=== PATIENT | female | born 1995 | race Caucasian/White ===

== ENCOUNTER 2016-04-16 20:44 | Emergency (ER) | payer OTHER ==
[~2016-04-16] VITALS: Ht 165.1 cm; Wt 45.0 kg
[~2016-04-16 20:44] MED LIST: HYDR-4079 PO; POLY335019 PO
[2016-04-16 20:46] VITALS: BP 125/85; PULSE 98; TEMP 36.6; O2SAT 100; Ht 165.1 cm; Wt 45.0 kg
[2016-04-16] MEDS ORDERED: PRED20TA2 PO (21:24)
[2016-04-16] MEDS ORDERED: CYCL10TA6 PO (21:24)
[2016-04-16] MEDS ORDERED: FLEXERIL HOME PACK 10 MG VIAL PO ONE (21:30)
[2016-04-16] MEDS ORDERED: ESCI10TA17 PO (21:58)
--- NOTE | 2016-04-17 15:50 | EMERGENCY ROOM VISIT NOTE ---
History First contact with patient: 20:50 Chief Complaint: BACK PAIN Stated Complaint: FEVER,BACK HURTS History of Present Illness The patient is a 20 year old female who presents to the Emergency Room with complaints of fever and back pain for the past one day. The patient states that she started her menses today, and will often have pain with her cycle. The patient states that she has not taken anything [id number] for her discomfort which she currently rates a 9/10. Her pain does worsen with certain movements. The patient does not have injury or trauma to explain her symptoms. No numbness or paresthesias. No difficulty using the bathroom. Review of Systems More than 10 systems were reviewed and otherwise negative with the exception of history of present illness. Past Medical/Surgical History Medical Problems: (1) Oral pain (2) Scoliosis Surgical Problems: (1) Heart Valve Replac Nec Family History Heart disease Social History Smoking Status: Current Every Day Smoker Marital Status: single Housing Status: unknown Occupation Status: unemployed Current/Historical Medications Scheduled Cyclobenzaprine Hcl (Flexeril), 10 MG PO TID Escitalopram (Lexapro), 10 MG PO DAILY Polyethylene Glycol 3350 (Miralax), 17 GM PO QPM Prednisone (Prednisone Tab), 2 TAB PO DAILY Allergies Coded Allergies: Diphenhydramine (Verified Allergy, Severe, rash itchy mouth and throat, ) Acetaminophen (Unverified Allergy, Unknown, THROAT ITCHES, 04/16/16) Codeine (Unverified Allergy, Unknown, THROAT ITCHES, 04/16/16) Ketorolac Tromethamine (Unverified Allergy, Unknown, EYES HURT, 04/16/16) Tramadol (Verified Adverse Reaction, Unknown, head and heart feel really heavy, 04/16/16) Physical Exam Vital Signs Date Time Temp Pulse Resp B/P Pulse Ox O2 Delivery O2 Flow Rate FiO2 04/16/16 20:46 36.6 98 18 125/85 100 Room Air Pain Rating (0-10): 8.0 Physical Exam VITALS: Vitals are noted on the nurse's note and reviewed by myself. Vital signs stable. GENERAL: Well-developed, well-nourished, white female, who is in no acute distress and resting comfortably. Patient is cooperative with the examination. HEAD: Normocephalic atraumatic. NECK: Supple without nuchal rigidity. No lymphadenopathy. No thyromegaly. Cervical spine is nontender. HEART: Regular rate and rhythm with 3/6 systolic murmur LUNGS: Clear to auscultation bilaterally without wheezes, rales or rhonchi. No retractions or accessory muscle use. MUSCULOSKELETAL: No muscle atrophy, erythema, or edema noted. Mild tenderness on palpation through the mid and lower lumbar spine. No significant paravertebral spasm. Negative straight leg raise. No saddle paresthesias. NEURO: Patient was alert and oriented to person place and time. CN II through XII grossly intact. Deep tendon reflexes 2+ throughout. Medical Decision & Procedures Medications Administered Medications (Trade) Dose Ordered Sig/Dell Route Start Time Stop Time Status Last Admin Dose Admin Cyclobenzaprine HCl (FLEXERIL 10MG Home Pack) 1 homepack UD ONCE PO 04/16/16 21:30 04/16/16 21:31 DC 04/16/16 21:33 1 HOMEPACK ED Course Physical exam and history were performed. Nursing notes and EMR were reviewed. Patient appears to have low back pain for the past one day. The patient is well -known to the emergency department for chronic pain related complaints. Today is her 14th visit in the past year to the ER for pain related complaints. She has a history of drug-seeking behavior, and is exhibiting this again today. I reviewed her [place] drug monitoring program profile, and it appears that she has been receiving regular Vicodin prescriptions through other sources. She appears to have been cut off from her previous providers, as she has not had any prescriptions this month. I do not have objective findings to warrant narcotic intervention for this patient. She is reportedly allergic to NSAIDs, Tylenol, and tramadol. She is demanding narcotics, and this is not appropriate. The patient will be given a course of Flexeril and prednisone. I explained at length that the emergency department is not able to treat ongoing and chronic pain. She will follow with her primary care physician, orthopedic nutrition specialist, and [employer] for further management. The patient was quite dissatisfied with this information. She verbalized this, and wrote disparaging statements on her medication history form. The patient will be formally transitioned to a no narcotic treatment plan. The chart was completed utilizing [employer] Voice Recognition Software. Grammatical errors, random word insertions, pronoun errors, and incomplete sentences are an occasional consequence of this system due to software limitations, ambient noise, and hardware issues. Any formal questions or concerns about the content, text, or information contained within the body of this dictation should be directly addressed to the provider for clarification. . Medical Decision Differential diagnosis: Etiologies such as musculoskeletal, disc herniation, fracture, aortic disease, metastatic disease, cord compression, discitis, infection, renal colic, gastrointestinal, acute exacerbation of chronic back pain, sciatica, cauda equina, as well as others were entertained. Impression Primary Impression: Low back pain Departure Information Dispostion Home / Self-Care Condition GOOD Prescriptions Prednisone (Prednisone Tab) 20 Mg Tab 2 TAB PO DAILY for 5 Days, #10 TAB Prov: Carlo Hill PA-C 04/16/16 Cyclobenzaprine Hcl (FLEXERIL) 10 Mg Tab 10 MG PO TID for 5 Days, #15 TAB Prov: Carlo Hill PA-C 04/16/16 Forms HOME CARE DOCUMENTATION FORM, IMPORTANT VISIT INFORMATION Patient Instructions My [facility] Additional Instructions You were seen and evaluated today on an emergency basis only. This is not a substitute for, or an effort to provide, complete comprehensive medical care. It is not possible to recognize and treat all injuries or illnesses in a single emergency department visit. For this reason it is recommended that you followup with your primary care physician or specialist for ongoing care and evaluation. The emergency department is not able to give you narcotic medication for your pain. Flexeril 1 tablet up to 3 times a day as needed for muscle spasms. No driving, working, or alcohol use with Flexeril. Take prednisone as prescribed You are welcome to return to the emergency department anytime with new, worsening, or concerning symptoms.
== END 2016-04-16 21:40 | disposition home or self-care (01) ==
LOC: C.EDB 20:45 → C.EDD 21:40
DX: M54.5 Low back pain (principal); M41.9 Scoliosis, unspecified; Z82.49 Family history of ischemic heart disease and other diseases of the circulatory system; F17.210 Nicotine dependence, cigarettes, uncomplicated; Z79.899 Other long term (current) drug therapy